=== PATIENT | female | born 1980 | race Caucasian/White ===

== ENCOUNTER 2021-03-19 11:03 | Outpatient (CLI) | payer OTHER, SELFPAY ==
--- NOTE | ~2021-03-19 | MMUS_ITS ---
EXAMINATION: MM diagnostic racquel BI w aniket, US breast BI limited HISTORY: Pain in the upper outer quadrant of the left breast TECHNIQUE: Craniocaudal, mediolateral, and mediolateral oblique 3-D tomosynthesis images of the breas ts were performed and synthetic 2-D images were generated. Spot compression views are also obtained. CAD analysis was submitted and interpreted. High resolution limited bilateral breast ultrasound was p erformed. COMPARISON: None, baseline BREAST PARENCHYMAL COMPOSITION: The breasts are heterogeneously dense, which may obscure small masses . FINDINGS: MAMMOGRAPHIC FINDINGS: Left breast: There is focal asymmetry in the upper outer quadrant of the left breast. No discrete mas s, architectural distortion, or calcification are identified. Right breast: There are oval, obscured, low-density masses in the posterior third of the lower breast 6:00 location location 10 cm from the nipple. ULTRASOUND: Left breast: There is heterogeneously dense tissue in the upper outer quadrant of the breast correspo nding to the area of palpable concern. There are multiple associated cysts in this region measuring u p to 2.2 cm. Right breast: There are two adjacent cysts at the 7:00 location 5 cm from the nipple measuring 10 mm and 5 mm. No suspicious cystic or solid mass is identified. IMPRESSION: 1. Probably benign focal asymmetry of the left breast corresponding to the area of pain without suspi cious mammographic or sonographic findings. Further evaluation at this time should be based on clinic al assessment. Continued follow-up physical examination is recommended. 2. Recommend 6 month follow-up left diagnostic mammogram and ultrasound. BI-RADS category 3, probably benign findings. Reviewed, dictated and finalized at location A. [employer] IMPRESSION: 1. Probably benign focal asymmetry of the left breast corresponding to the area of pain without suspicious mammographic or sonographic findings. Further evalu ation at this time should be based on clinical assessment. Continued follow-up physical examination is recommended. 2. Recommend 6 month follow-up left diagnostic mammogram and ultrasound. BI-RADS category 3, probably benign findings.
== END 2021-03-19 11:04 | disposition home or self-care (01) ==
LOC: ANHIMG 11:07
PROVIDERS: PCP Family Medicine Sports Medicine; Visit Provider Obstetrics & Gynecology
DX: R92.8 Other abnormal and inconclusive findings on diagnostic imaging of breast (principal)
CPT/HCPCS: 76642; 77062; 77066; G0279

== ENCOUNTER 2021-09-17 11:29 | Outpatient (CLI) | payer OTHER, SELFPAY ==
--- NOTE | ~2021-09-17 | MMUS_ITS ---
EXAMINATION: MM diagnostic racquel LT w aniket, US breast LT complete HISTORY: Six-month follow-up of probable benign focal asymmetry in upper outer quadrant TECHNIQUE: Additional 3-D tomosynthesis images of were performed and synthetic 2-D images were genera alan. CAD analysis was submitted and interpreted. High resolution breast ultrasound was performed. COMPARISON: 03/19/2021 bilateral diagnostic mammography and Limited bilateral breast ultrasound BREAST PARENCHYMAL COMPOSITION: The breasts are heterogeneously dense, which may obscure small masses . FINDINGS: MAMMOGRAPHIC FINDINGS: At least several approximately 7, 15 and 18 mm circumscribed opacities are noted in the posterior out er mid left breast, likely cysts. No suspicious mass or architectural distortion, malignant calcification, skin thickening or retractio n of the left breast is evident. ULTRASOUND: 1:00 5 cm from nipple: 1.3 x 1.0 x 1.4 cm simple cyst 2:00 6 cm from nipple: 1.6 x 1.1 x 1.4 cm simple cyst 3:00 3 cm from nipple: 1.7 x 6 0.7 x 1 cm simple cyst No suspicious mass or shadowing of the left breast is detected IMPRESSION: 1. Benign cysts; no mammographic evidence of malignancy 2. Routine mammographic screening is recommended BI-RADS Category 2: Benign finding(s). Reviewed, dictated and finalized at location A. IMPRESSION: 1. Benign cysts; no mammographic evidence of malignancy 2. Routine mammographic screening is recommended BI-RADS Category 2: Benign finding(s).
== END 2021-09-17 11:30 | disposition home or self-care (01) ==
LOC: ANHIMG 11:31
PROVIDERS: PCP Family Medicine Sports Medicine; Visit Provider Obstetrics & Gynecology
DX: R92.8 Other abnormal and inconclusive findings on diagnostic imaging of breast (principal)
CPT/HCPCS: 76641; 77061; 77065; G0279

== ENCOUNTER 2022-11-04 08:36 | Outpatient (CLI) | payer OTHER, SELFPAY ==
--- NOTE | ~2022-11-04 | MM_ITS ---
EXAMINATION: MM screening racquel BI w aniket HISTORY: Screening mammogram TECHNIQUE: Craniocaudal and mediolateral oblique 3-D tomosynthesis images were obtained and synthetic 2-D images were generated. Bilateral rotated lateral CC views. CAD analysis was submitted and interp reted. COMPARISON: 09/17/2021 diagnostic left mammogram and complete left breast ultrasound examination 03/19/2021 diagnostic bilateral mammogram and Limited bilateral breast ultrasound BREAST PARENCHYMAL COMPOSITION: The breasts are heterogeneously dense, which may obscure small masses . FINDINGS: There are bilateral breast masses, some circumscribed, low-density, some with halo sign, li uziel cysts. Bilateral diagnostic mammogram and bilateral breast ultrasound examination are recommende d. IMPRESSION: 1. Bilateral breast masses 2. Bilateral diagnostic mammogram and bilateral breast ultrasound examination are recommended BI-RADS Category 0: Incomplete: Needs additional imaging evaluation. Reviewed, dictated and finalized at location A. IMPRESSION: 1. Bilateral breast masses 2. Bilateral diagnostic mammogram and bilateral breast ultrasound examination a re recommended BI-RADS Category 0: Incomplete: Needs additional imaging evaluation.
== END 2022-11-04 08:37 | disposition home or self-care (01) ==
LOC: ANHIMG 08:40
PROVIDERS: PCP Family Medicine Sports Medicine; Visit Provider Obstetrics & Gynecology
DX: Z12.31 Encounter for screening mammogram for malignant neoplasm of breast (principal); R92.8 Other abnormal and inconclusive findings on diagnostic imaging of breast
CPT/HCPCS: 77063; 77067

== ENCOUNTER 2022-12-04 11:14 | Outpatient (CLI) | payer OTHER, SELFPAY ==
--- NOTE | ~2022-12-04 | MMUS_ITS ---
EXAMINATION: MM diagnostic racquel BI w aniket, US breast LT limited HISTORY: Bilateral breast masses on screening mammogram TECHNIQUE: Additional 3-D tomosynthesis images of the breasts were performed and synthetic 2-D images were generated. CAD analysis was submitted and interpreted. High resolution limited left breast ultr asound was performed. COMPARISON: 11/04/2022, 09/17/2021, 03/19/2021 FINDINGS: MAMMOGRAPHIC FINDINGS: Right breast: There are multiple obscured, equal density masses in the right breast which demonstrate a stable appearance when compared to prior mammograms with spot compression. Left breast: Multiple obscured masses are noted in the upper outer quadrant of the breast, some of wh ich demonstrate slight increase in size since the most recent comparison examination. No suspicious c alcification or architectural distortion are identified. ULTRASOUND: There are multiple simple cysts in the upper outer quadrant of the left breast, the largest of which measures up to 2 cm. No suspicious cystic or solid mass is identified. IMPRESSION: 1. No mammographic or sonographic evidence of malignancy. 2. Recommend routine screening mammography in one year. BI-RADS Category 2: Benign finding(s). Reviewed, dictated and finalized at location A. IMPRESSION: 1. No mammographic or sonographic evidence of malignancy. 2. Recommend routine screening mammography in one year. BI-RADS Category 2: Benign finding(s).
== END 2022-12-04 11:15 | disposition home or self-care (01) ==
LOC: ANHIMG 11:21
PROVIDERS: PCP Family Medicine Sports Medicine; Visit Provider Obstetrics & Gynecology
DX: R92.8 Other abnormal and inconclusive findings on diagnostic imaging of breast (principal)
CPT/HCPCS: 76642; 77062; 77066; G0279

== ENCOUNTER 2022-12-29 23:16 | Emergency (ER) | payer OTHER, SELFPAY ==
[2022-12-29 23:20] VITALS: BP 139/78; PULSE 75; RESP 15; TEMP 36; O2SAT 75
[2022-12-29 23:39] LABS: Basophils Absolute Auto 0.1 K/mm3 (0.0-0.1); Eosinophils Absolute Auto 0.2 K/mm3 (0-0.3); Eosinophils Percent Auto 2.4 % (0-4.4); Hematocrit 37.7 % (37.0-47.0); Hemoglobin 12.3 g/dL (12.0-15.0); Immature Granulocyte Absolute 0.01 K/mm3 (0.00-0.031); Immature Granulocyte Percent A 0.1 % (0-0.5); Lymphocytes Absolute Auto 3.05 K/mm3 (0.9-3.2); Lymphocytes Percent Auto 31.7 % (18.3-44.2); Mean Corpuscular HGB Conc 32.6 g/dl (32-36); Mean Corpuscular Hemoglobin 28.5 pg (26-34); Mean Corpuscular Volume 87.3 fl (80-100); Mean Platelet Volume 10.1 fl (7.4-10.4); Monocytes Absolute Auto 0.9 K/mm3 (0.1-0.6); Monocytes Percent Auto 9.8 % (2.6-8.5); Neutrophils Absolute Auto 5.3 K/mm3 (1.3-6.7); Platelet Count Result 374 k/mm3 (150-375); Red Blood Count 4.32 M/mm3 (4.2-5.4); Red Cell Distribution Width 12.6 % (11.5-14.5); White Blood Count 9.6 K/mm3 (4.5-10.0)
[2022-12-29 23:50] LABS: Alanine Aminotransferase 19 U/L (6-35); Albumin Level 4.4 g/dL (3.5-5.1); Alkaline Phosphatase 79 U/L (38-126); Anion Gap 7 mmol/L (8-16); Aspartate Amino Transferase 24 U/L (14-36); Bilirubin,Total 0.3 mg/dL (0.2-1.3); Blood Urea Nitrogen 14 mg/dL (7-17); Calcium 9.2 mg/dL (8.4-10.2); Carbon Dioxide 29 mmol/L (22-30); Chloride 102 mmol/L (98-107); Estimated CRCL calculation 79 ml/min; Estimated Glomerular Filt Rate > 60; Glucose 128 mg/dL (65-110); Lipase 99 U/L (23-300); Potassium 4.2 mmol/L (3.4-5.0); Sodium 138 mmol/L (137-145)
[2022-12-30 00:47] LABS: Appearance Urine Clear (Clear); Bilirubin Urine Negative (Negative); Blood Urine Negative (Negative); Color Urine Yellow (Yellow); Glucose Urine UA Negative (Negative); Ketones Urine Negative (Negative); Leukocyte Esterase Ur Negative LEU/UL (Negative); Nitrate Urine Negative (Negative); Protein Urine Negative (Negative); Specific Grav Ur 1.006 (1.001-1.035); Urobilinogen Urine 0.2 mg/dL (<2.0); pH Urine 6.5 (5.0-9.0)
[2022-12-30 00:48] LABS: Add Urine Microscopic? NO
[2022-12-30 01:15] LABS: Pregnancy On Board Control Positive; Urine Pregnancy Test Negative
== END 2022-12-30 01:20 | disposition left against medical advice (07) ==
LOC: ANHED 12-30 01:20
PROVIDERS: Emergency Provider Emergency Medicine; PCP Family Medicine Sports Medicine
DX: R10.9 Unspecified abdominal pain (principal)
CPT/HCPCS: 36415; 80053; 81003; 81025; 83690; 85025; 99199

== ENCOUNTER 2023-01-01 12:01 | Emergency (ER) | payer OTHER, SELFPAY ==
--- NOTE | ~2023-01-01 | US_ITS ---
US right upper quadrant DATE: 01/01/2023 16:48 INDICATION: Right upper quadrant abdominal pain TECHNIQUE: Real-time imaging of liver, pancreas, gallbladder COMPARISON: 01/01/2023 CT abdomen pelvis FINDINGS: No hepatic or pancreatic space-occupying mass lesion is detected. Normal hepatopedal portal venous flow direction. There is gallbladder wall thickening, measuring up to 3 have 4 mm thickness. There is a fixed filling defect of the gallbladder neck, measuring up to approximately 1.1 cm diameter, with posterior shadow ing. IMPRESSION: Acute cholecystitis with impacted stone at gallbladder neck, gallbladder wall thickening Reviewed, dictated and finalized at Location A. Reviewed, dictated and finalized at location A. IMPRESSION: Acute cholecystitis with impacted stone at gallbladder neck, gallbl adder wall thickening
--- NOTE | ~2023-01-01 | CT_ITS ---
EXAMINATION: CT abdomen pelvis w con DATE: 01/01/2023 16:46 INDICATION: Right upper quadrant abdominal pain TECHNIQUE: Computed tomography (CT) of the abdomen and pelvis was performed with 100 mL Omnipaque-350 intravenous contrast. Automated exposure control and iterative reconstruction technique were employe d. The dose-length product was 463.99 mGy-cm. COMPARISON: None FINDINGS: Mild linear discoid atelectasis in the left lower lobe. Heart size is normal. No pericardial or pleur al effusion. Small amount of pericholecystic fluid versus mild edematous wall thickening of the decom pressed gallbladder. Liver, spleen, pancreas and bilateral adrenal glands are normal. Numerous scatte red colonic diverticula without adjacent inflammatory change to suggest diverticulitis. Small bowel a nd appendix are normal. Bladder is normal. Heterogeneous enhancement of the anteverted uterus with so me architectural distortion of the endometrial complex most likely related to uterine fibroids. 1.7 c m likely corpus luteum cyst in the right ovary with peripheral enhancing rim with typical crenelated contour. Minimal likely physiologic free fluid in the cul-de-sac. No abscess or free intraperitoneal gas. No pathologically enlarged abdominal or pelvic lymphadenopathy. Mild to moderate lower lumbar pr edominant facet osteoarthritis. IMPRESSION: 1. Small amount of pericholecystic fluid versus edematous wall thickening of the largely decompressed gallbladder which argues against acute cholecystitis but which could be seen with either chronic cho lecystitis or acute cholecystitis with resultant obstruction. Could consider further evaluation with HIDA scan or right upper quadrant ultrasound as clinically indicated. 2. Mildly enlarged and heterogeneously enhancing uterus most likely related to uterine fibroids. If n ot previously worked up would consider further evaluation with ultrasound. 3. Extensive diverticulosis. Reviewed, dictated and finalized at location A. IMPRESSION: 1. Small amount of pericholecystic fluid versus edematous wall thickening of th e largely decompressed gallbladder which argues against acute cholecystitis but which could be seen with either chronic cholecystitis or acute cholecystitis w ith resultant obstruction. Could consider further evaluation with HIDA scan or right upper quadrant ultrasound as clinically indicated. 2. Mildly enlarged and heterogeneously enhancing uterus most likely related to uterine fibroids. If not previously worked up would consider further evaluation with ultrasound. 3. Extensive diverticulosis.
[2023-01-01 12:28] VITALS: BP 134/76; PULSE 72; RESP 16; TEMP 36.6; O2SAT 100
[2023-01-01 14:30] LABS: Appearance Urine Clear (Clear); Bilirubin Urine Negative (Negative); Blood Urine Negative (Negative); Color Urine Yellow (Yellow); Glucose Urine UA Negative (Negative); Ketones Urine Negative (Negative); Leukocyte Esterase Ur Negative LEU/UL (Negative); Nitrate Urine Negative (Negative); Protein Urine Negative (Negative); Specific Grav Ur 1.007 (1.001-1.035); Urobilinogen Urine 0.2 mg/dL (<2.0)
[2023-01-01 14:33] LABS: Add Urine Microscopic? NO
[2023-01-01 15:45] LABS: Basophils Absolute Auto 0.1 K/mm3 (0.0-0.1); Eosinophils Absolute Auto 0.2 K/mm3 (0-0.3); Eosinophils Percent Auto 1.9 % (0-4.4); Hematocrit 40.9 % (37.0-47.0); Hemoglobin 13.3 g/dL (12.0-15.0); Immature Granulocyte Absolute 0.01 K/mm3 (0.00-0.031); Immature Granulocyte Percent A 0.1 % (0-0.5); Lymphocytes Absolute Auto 2.36 K/mm3 (0.9-3.2); Lymphocytes Percent Auto 27.3 % (18.3-44.2); Mean Corpuscular HGB Conc 32.5 g/dl (32-36); Mean Corpuscular Hemoglobin 28.5 pg (26-34); Mean Corpuscular Volume 87.6 fl (80-100); Mean Platelet Volume 10.1 fl (7.4-10.4); Monocytes Absolute Auto 0.7 K/mm3 (0.1-0.6); Neutrophils Absolute Auto 5.3 K/mm3 (1.3-6.7); Neutrophils Percent Auto 61.7 % (45.5-73.1); Platelet Count Result 400 k/mm3 (150-375); Red Blood Count 4.67 M/mm3 (4.2-5.4); Red Cell Distribution Width 12.8 % (11.5-14.5); White Blood Count 8.6 K/mm3 (4.5-10.0)
[2023-01-01 16:11] LABS: Alanine Aminotransferase 21 U/L (6-35); Albumin Level 4.6 g/dL (3.5-5.1); Alkaline Phosphatase 73 U/L (38-126); Anion Gap 6 mmol/L (8-16); Aspartate Amino Transferase 25 U/L (14-36); Bilirubin,Total 0.4 mg/dL (0.2-1.3); Blood Urea Nitrogen 10 mg/dL (7-17); Carbon Dioxide 30 mmol/L (22-30); Chloride 103 mmol/L (98-107); Estimated CRCL calculation 89 ml/min; Estimated Glomerular Filt Rate > 60; Glucose 119 mg/dL (65-110); Lipase 54 U/L (23-300); Sodium 139 mmol/L (137-145)
[2023-01-01 17:32] LABS: Lactic Acid Reflex 1.2 mmol/L (0.7-2.0)
[2023-01-01] MEDS: metroNIDAZOLE 250 MG TABLET 500 MG PO (17:52)
[2023-01-01] MEDS: CIPROFLOXACIN 500 MG TAB PO (17:53)
--- NOTE | 2023-01-01 17:55 | ED.ABDPAIN ---
HPI - Abdominal Pain General Chief Complaint: Abdominal Pain Stated Complaint: gallbladder problems Time Seen by Provider: 01/01/23 14:44 History of Present Illness HPI narrative: This is a 42-year-old female, with no significant past medical history, presents to the emergency department complaining of intermittent right upper quadrant pain for the past week. The patient states her pain began 1 week ago, shortly after eating. It was rated 7/10, described as sharp without radiation. The pain resolved, but has reoccurred. Her last episode of pain was 2 days ago, she presented for evaluation but left prior to being seen. The patient discussed this with her primary care doctor, who recommended she be evaluated in the emergency department. She denies pain today. Related Data Allergies Allergy/AdvReac Type Severity Reaction Status Date / Time No Known Allergies Allergy Unknown Unverified 07/22/07 14:01 Review of Systems Review of Systems: CONSTITUTIONAL: Denies fever, chills, or sweats. CARDIOVASCULAR: Denies chest pain, palpitations, or edema. RESPIRATORY: Denies cough or dyspnea. GASTROINTESTINAL: Intermittent right upper quadrant abdominal pain denies nausea, vomiting, or diarrhea. GENITOURINARY: Denies dysuria or hematuria. SKIN: Denies rash or itching. MUSCULOSKELETAL: Denies back pain, joint pain, or myalgia. NEUROLOGIC: Denies headache, numbness, dizziness, or weakness. PSYCHIATRIC: Denies anxiety or depression. PMFSH Past Medical History Medical History (Updated 01/01/23 @ 20:29 by Kaiden Nunez MD) No significant past medical history Surgical History Surgical History (Updated 01/01/23 @ 20:29 by Kaiden Nunez MD) History of Social History Social History (Updated 01/01/23 @ 20:30 by Kaiden Nunez MD) Smoking status: Never smoker Alcohol intake: current Drinks per week: 1 Substance use: never Exam Narrative: GENERAL: Well-developed, well-nourished, and in no acute distress. HEAD: Normocephalic, atraumatic. EYES: PERRLA and EOMI. CHEST: Clear to auscultation. No respiratory distress. No wheezes rales or rhonchi HEART: Regular rate and rhythm. No murmur heard. Normal peripheral pulses. ABDOMEN: Soft, nontender, nondistended, normal active bowel sounds. No CVA tenderness to palpation. EXTREMITIES: Normal range of motion. No edema. SKIN: Warm, dry, no rash. NEURO: Alert and oriented x3. Moving all 4 limbs purposefully. PSYCH: Normal mood and affect. Course Course Emergency Course: 17:36 - White blood cell count within normal limits at 8.6. Mild thrombocytosis with platelet count of 400. CBC otherwise unremarkable. Chemistries unremarkable with a negative lactic acid of 1.2 and normal LFTs. UA not concerning for UTI. test was negative. Ultrasound and CT abdomen pelvis consistent with acute cholecystitis. Ultrasound shows an impacted stone at the gallbladder neck. The patient has not had any abdominal pain. I discussed the patient with general surgeon, Dr. Stewart, who recommends oral antibiotics, and close outpatient follow-up. I discussed these findings and recommendations with the patient and her spouse, both of whom voiced understanding and are comfortable with the plan. All questions answered to their satisfaction. Vital Signs Vital signs: Vital Signs Temperature 97.9 F 01/01/23 12:28 Pulse Rate 72 01/01/23 12:28 Respiratory Rate 16 01/01/23 12:28 Blood Pressure 134/76 01/01/23 12:28 Pulse Oximetry 100 01/01/23 12:28 Oxygen Delivery Room Air 01/01/23 12:28 Temperature 97.5 F L 01/01/23 18:12 Pulse Rate 64 01/01/23 18:12 Respiratory Rate 15 01/01/23 18:12 Blood Pressure 110/92 H 01/01/23 18:12 Pulse Oximetry 100 01/01/23 18:12 Oxygen Delivery Room Air 01/01/23 12:28 MDM - Abdominal Pain MDM Narrative Medical decision making narrative: Plan: Labs, imaging, pain control, test,
[2023-01-01 18:12] VITALS: BP 110/92; PULSE 64; RESP 15; TEMP 36.4; O2SAT 100
== END 2023-01-01 18:10 | disposition home or self-care (01) ==
PROVIDERS: Emergency Provider Preventive Medicine Aerospace Medicine; PCP Family Medicine Sports Medicine
DX: K80.00 Calculus of gallbladder with acute cholecystitis without obstruction (principal); K57.90 Diverticulosis of intestine, part unspecified, without perforation or abscess without bleeding
CPT/HCPCS: 36415; 74177; 76705; 80053; 81003; 81025; 83605; 83690; 85025; 99284; A9270; Q9967

== ENCOUNTER 2023-01-06 02:06 | Day surgery (SDC) | payer OTHER, SELFPAY ==
--- NOTE | 2023-01-03 15:25 | PC.NURSE ---
Report to the Outpatient Waiting Room, entrance under the green pavilion located off [facility], at time on date . Planned Procedure Time: . Time changes happen often and if your time is changed the preop area will call you the afternoon before. - You and your visitor will be asked to self-screen and do not enter if you have any COVID symptoms. - A mask is optional within the hospital at this time. Patients may have clear liquids (water, carbonated beverages, clear teas, apple juice) until 3 hours prior to surgery with a maximum of 20 ounces. - No food from midnight until time of surgery - Infants may have breast milk until 4 hours before surgery, infant formula 6 hours prior to surgery. - Children will be allowed to drink immediately following surgery. If applicable, please bring a bottle or sippy cup to assist with drinking. Juice, water, soda, and popsicles are readily available. For infants on formula, please bring formula the day of surgery. Pacifiers are allowed. Take the following medications with a SIP of water the morning of surgery: __ALPRAZOLAM, CIPRO, METRONIDAZOLE DO NOT STOP ANY OF YOUR OTHER PRESCRIPTION MEDICATIONS PRIOR TO SURGERY ?EXCEPT THE FOLLOWING Medications to discontinue per physician NONE Date to take last dose HIBICLENS SHOWER MORNING OF SURGERY Please no make-up, nail cuban, hairspray, perfume, deodorant, or body powder the day of surgery. No jewelry (including any body piercings) or valuables the day of surgery, leave them at home. Please take a shower or bath the night before, or the morning of, surgery with an antibacterial soap. Wear comfortable, loose fitting clothing. Children are encouraged to wear pajamas. - Jewelry must be removed prior to entering the operating room. Rings and piercings that are not removed may be cut off. - The hospital will not accept responsibility for valuables. - Please leave all valuables, including medications, at home the day of surgery. If you are going home after surgery, a licensed road oiling truck driver must drive you home. - NO public transportation without another adult if you receive anesthesia. - We recommend that an adult stay with you for 24 hours following discharge. - We also recommend that you do not drive, make important decision, drink alcoholic beverages, or take any drugs that were not prescribed by your health care provider for at least 24 hours after your discharge time. For Pediatric surgeries, we recommend two adults accompany the child home. Follow any additional instructions given to you from your surgeon. If you or anyone in your household have experienced Covid symptoms in the past week, please notify your surgeon or the nurse liaison at the phone number below for possible testing. Telephone instructions given to __PT and asked if any additional questions and then verbalized understanding. Patient advised to call surgeon office or pre surgery nurse liaison [phone] if any additional questions.
[2023-01-03 15:34] VITALS: BMI 27.3
[2023-01-06] VITALS (9 sets, daily range): BP systolic 102–128; BP diastolic 53–85; PULSE 67–86; RESP 14–18; TEMP 36.1–37; O2SAT 98–100
--- NOTE | 2023-01-06 13:09 | WPDHPUPDATE1 ---
History and Physical Update Update Date/Time: 01/06/23 13:09 History and Physical has been reviewed, including an updated exam of the patient. There are NO changes in the patient's condition. Risks, benefits, and alternatives have been discussed and questions answered. Patient agrees to proceed with procedure.
--- NOTE | 2023-01-06 13:27 | WPDANESEPP ---
Anes - Eval Pre Procedure Procedure: Operation Date: 01/06/23 16:00 Proposed Procedures p Laparoscopic Cholecystectomy - Gillian Fish MD Date/Time: 01/06/23 13:27 Pre Op Diagnosis: acute calculus cholecystitis Patient Data Age: 42 Gender: F Height: 1.63 m Weight: 72.15 kg Allergies Allergy/AdvReac Type Severity Reaction Status Date / Time No Known Allergies Allergy Unknown Verified 01/03/23 15:19 Home Medications Medication Instructions Recorded Confirmed Type ciprofloxacin HCl 500 mg tablet 500 mg PO Q12H #28 tabs 01/01/23 01/03/23 Rx metronidazole 500 mg tablet 500 mg PO Q8H 14 days #42 tabs 01/01/23 01/03/23 Rx oxycodone-acetaminophen 5 mg-325 1 tablet PO Q8H PRN pain, severe 01/01/23 01/03/23 Rx mg tablet (Endocet) #15 tabs prochlorperazine maleate 10 mg 10 mg PO Q8H PRN nausea and 01/01/23 01/03/23 Rx tablet vomiting #15 tabs alprazolam 0.25 mg tablet 0.25 mg PO PRN PRN Anxiety 01/03/23 01/03/23 History Patient hx anesthesia problems: post op nausea/vomiting Family hx anesthesia problems: none Results Review: All pre-operative results and documents have been reviewed as part of the pre-operative evaluation. [facility] Past Medical History Medical History Anxiety No significant past medical history Overweight (BMI 25.0-29.9) PONV (postoperative nausea and vomiting) Rosacea Surgical History Surgical History History of Family History Family History Other Cancer Cerebrovascular accident Diabetes mellitus Social History Social History Smoking status: Never smoker Alcohol intake: current Drinks per week: 1 Substance use: never Living arrangements: with family Spiritual care concerns: No Exam Day of Procedure 01/06/23 13:27 Patient weight: overweight Heart: regular rate and rhythm Lungs: clear to auscultation Airway: Mallampati scale class II Neurological: alert and oriented
[2023-01-06] MEDS: ACETAMINOPHEN 500 MG TABLET 1000 MG PO (13:40)
[2023-01-06] MEDS: LACTATED RINGERS 1,000 ML 30 ML IV CONT ×2 (13:40→14:47)
[2023-01-06] MEDS: KETOROLAC 15 MG/ML VIAL (*BKC) IV PUSH (13:40)
[2023-01-06] MEDS: SCOPOLAMINE 1.5 MG PATCH TRANSDERM (13:45)
[2023-01-06] MEDS: ceFAZolin 2 GM/D5W 50 ML 2 GM/50 ML BAG IVPB (14:00)
[2023-01-06] MEDS: BUPIVACAINE/EPINEPHRINE 0.5% 50 ML VIAL INFILTRATE (14:22)
--- NOTE | 2023-01-06 14:48 | W.PM.PROC2 ---
Procedure Note - Detailed Date of Procedure 01/06/23 Pre-op Diagnosis acute calculus cholecystitis Post-op Diagnosis Same Procedure Performed Laparoscopic cholecystectomy Surgeon Gillian Fish MD Anesthesia General Indications 42-year-old female presented to the office complaining of severe right upper quadrant abdominal pain associated with nausea and vomiting. Workup including imaging significant for acute cholecystitis, cholelithiasis. Findings acute cholecystitis with cholelithiasis Description of Procedure The patient was taken to the operating room placed in the supine position. After adequate induction of general anesthesia, the patient was prepped and draped in normal sterile fashion. A time-out was then performed to verify the patient's identity as well as the procedure being performed. I then made a 5 mm incision in the infraumbilical region. Through this, a Veress needle was placed into the peritoneal cavity and CO2 gas was then insufflated. After adequate pneumoperitoneum was achieved, the Veress needle was removed and a 5 mm optiview trocar was placed through this incision under direct visualization. I then placed the laparoscope through this trocar site and under direct visualization placed a further 12 mm subxiphoid port as well as 2 additional 5 mm ports in the right upper abdomen. The gallbladder was then identified and was noted to be inflamed, distended, and a impacted gallstone was noted at the neck. I was able to place a grasper at the dome of the gallbladder and this was retracted anterior and cephalad up over the liver. A 2nd retractor was then placed at the infundibulum and retracted laterally, this allowed visualization of the triangle of Calot. I then was able to visualize the cystic duct in its entirety from its proximal insertion into the gallbladder, to its distal junction with the common hepatic/common bile duct junction. At this point, I carefully skeletonized the proximal cystic duct with the [place] dissector. I then clipped and transected the proximal cystic duct. Next I visualized the cystic artery. Again the artery was skeletonized, clipped, and transected. I then used the Bovie cautery to take down the peritoneal attachments of the gallbladder off the liver bed. This was somewhat difficult given the amount of inflammation in the posterior space. Once the gallbladder specimen was completely detached, an endo-pouch was placed through the 12 mm port site. I then placed the gallbladder specimen into the Endo pouch and removed the endo-pouch from the 12 mm port site. The specimen will now be sent to pathology for further review. I then copiously irrigated the right upper quadrant. Hemostasis was noted in the liver bed, the clips were noted to be in good position on both the cystic duct stump and the cystic artery stump. No other pathology was noted in the right upper quadrant. I then moved the laparoscope to the subxiphoid port. No iatrogenic injury or other pathology was noted in the lower abdomen. I then closed the 12 mm trocar site under direct visualization using the Acosta cone and 0 Vicryl suture. At this point, the abdomen was desufflated and all ports removed. All port sites were then closed with 4.O Monocryl subcuticular sutures. Dermabond was placed on each incision. The patient tolerated the procedure well, was extubated in the operating room postoperative and will be transferred to the recovery room in stable condition Estimated Blood Loss 5 Drains No Packing No Pathology Yes Complications No immediate complications Condition Stable Disposition PACU [facility] Billing Surgery - Charge Forward: Surgery Billing
[2023-01-06] MEDS: fentaNYL CITRATE INJ (*CRX) 100 MCG/2 ML VIAL 25 MCG IV PUSH ×4 (15:27→16:24)
[2023-01-06] MEDS: ONDANSETRON INJ 4 MG/2 ML VIAL IV PUSH (16:19)
[2023-01-06] MEDS: diphenhydrAMINE HCl INJ 50 MG/ML VIAL 25 MG IV PUSH (16:30)
== END 2023-01-06 17:25 | disposition home or self-care (01) ==
PROVIDERS: PCP Family Medicine Sports Medicine; Visit Provider Surgery
PROC: 0FT44ZZ Resection of Gallbladder, Percutaneous Endoscopic Approach (ICD-10-PCS; CPT 47562; principal; 2023-01-06 16:00)
DX: K80.10 Calculus of gallbladder with chronic cholecystitis without obstruction (principal); F41.9 Anxiety disorder, unspecified
CPT/HCPCS: 47562; 88304; A9270; J0690; J1100; J1200; J1885; J2250; J2405; J2704; J3010; J7030; J7120

== ENCOUNTER 2023-08-13 00:13 | Day surgery (SDC) | payer OTHER, SELFPAY ==
[2023-08-01 14:38] VITALS: BMI 28.3
--- NOTE | 2023-08-01 14:41 | PC.NURSE ---
Report to the Outpatient Waiting Room, entrance under the green pavilion located off [facility], at time 1000 on date 08/13/23. Planned Procedure Time: 1200. Time changes happen often and if your time is changed the preop area will call you the afternoon before. - You and your visitor will be asked to self-screen and do not enter if you have any COVID symptoms. - A mask is optional within the hospital at this time. Patients may have clear liquids (water, carbonated beverages, clear teas, apple juice) until 3 hours prior to surgery with a maximum of 20 ounces. - No food from midnight until time of surgery Take the following medications with a SIP of water the morning of surgery: ALPRAZOLAM IF NEEDED DO NOT STOP ANY OF YOUR OTHER PRESCRIPTION MEDICATIONS PRIOR TO SURGERY ?EXCEPT THE FOLLOWING Medications to discontinue per physician: N/A Date to take last dose: N/A Please no make-up, nail sami, hairspray, perfume, deodorant, or body powder the day of surgery. No jewelry (including any body piercings) or valuables the day of surgery, leave them at home. Please take a shower or bath the night before, or the morning of, surgery with an antibacterial soap. Wear comfortable, loose fitting clothing. - Jewelry must be removed prior to entering the operating room. Rings and piercings that are not removed may be cut off. - The hospital will not accept responsibility for valuables. - Please leave all valuables, including medications, at home the day of surgery. If you are going home after surgery, a licensed patrol driver must drive you home. - NO public transportation without another adult if you receive anesthesia. - We recommend that an adult stay with you for 24 hours following discharge. - We also recommend that you do not drive, make important decision, drink alcoholic beverages, or take any drugs that were not prescribed by your health care provider for at least 24 hours after your discharge time. Follow any additional instructions given to you from your surgeon. If you or anyone in your household have experienced Covid symptoms in the past week, please notify your surgeon or the nurse liaison at the phone number below for possible testing. Telephone instructions given to DEVANTE MENDIOLA and asked if any additional questions and then verbalized understanding. Patient advised to call surgeon office or pre surgery nurse liaison [phone] if any additional questions.
[2023-08-13 10:11] VITALS: BP 115/66; PULSE 71; RESP 16; TEMP 36.7; O2SAT 100
--- NOTE | 2023-08-13 10:11 | P.PNAN_ITS ---
Anes - Initial Pre Proc Eval Procedure: Operation Date: 08/13/23 12:00 Proposed Procedures p Hysteroscopy Dilation and Curettage with Sharita Endometrial Ablation - Sánchez Brenner MD Date/Time: 08/13/23 10:11 Surgeon: Sánchez Brenner MD Pre Op Diagnosis: irregular excessive bleeding Patient Data Age: 43 Gender: F Height: 1.63 m Weight: 74.85 kg Allergies Allergy/AdvReac Type Severity Reaction Status Date / Time No Known Allergies Allergy Unknown Verified 08/13/23 10:13 Home Medications Medication Instructions Recorded Confirmed Type alprazolam 0.25 mg tablet 0.25 mg PO PRN PRN Anxiety 01/03/23 08/13/23 History Patient hx anesthesia problems: post op nausea/vomiting (After lap laz recently, no issues w GI anesthetic previously. ) Family hx anesthesia problems: none Results Review: All pre-operative results and documents have been reviewed as part of the pre- operative evaluation. [facility] Past Medical History Medical History Anxiety No significant past medical history Overweight (BMI 25.0-29.9) PONV (postoperative nausea and vomiting) Rosacea Surgical History Surgical History Hx laparoscopic cholecystectomy Laparoscopic cholecystectomy 01/06/[address] Fish. Family History Family History Other Cancer Cerebrovascular accident Diabetes mellitus Social History Social History Smoking status: Never smoker Alcohol intake: current Drinks per week: 1 Alcohol use details: VERY RARE Substance use: never Substance use type: does not use Living arrangements: with family Gender identity (if verbalized by the patient): Female Sexual Orientation (if Verbalized by the Patient): Straight or Heterosexual Spiritual care concerns: No Anes - Eval Final PreProcedure Day of Procedure 08/13/23 10:11 Patient weight: normal Heart: regular rate and rhythm Lungs: clear to auscultation Airway: Mallampati scale Neurological: alert and oriented Last oral intake: >/= 8 hours ASA classification: II Emergent: no Anesthetic plan: proceed Anesthesia type and monitoring: general GIVS and standard monitoring Results Review: All pre-operative results and documents have been reviewed as part of the pre-operative evaluation. Informed Consent: The patient's anesthetic plan and its attendant risks and benefits were discussed with the patient/family/POA. Questions were solicited and answers provided to the satisfaction of the patient/family/POA.
[2023-08-13] MEDS: ACETAMINOPHEN 500 MG TABLET 1000 MG PO (10:20)
[2023-08-13] MEDS: LACTATED RINGERS 1,000 ML 30 ML IV CONT (10:25)
--- NOTE | 2023-08-13 11:31 | PM.IMHP ---
H&P: HPI History of Present Illness Date/Time: 08/13/23 11:31 Chief Complaint: Heavy periods. Narrative: 43 y/o whose has had a vasectomy. She has heavy menses. She is interested in surgical management. Review of Systems Review of Systems: All systems reviewed & are unremarkable except as noted in HPI and below PMFSH Past Medical History Medical History Anxiety No significant past medical history Overweight (BMI 25.0-29.9) PONV (postoperative nausea and vomiting) Rosacea Surgical History Surgical History Hx laparoscopic cholecystectomy Laparoscopic cholecystectomy 01/06/[address] Fish. Family History Family History Other Cancer Cerebrovascular accident Diabetes mellitus Social History Social History Smoking status: Never smoker Alcohol intake: current Drinks per week: 1 Alcohol use details: VERY RARE Substance use: never Substance use type: does not use Living arrangements: with family Gender identity (if verbalized by the patient): Female Sexual Orientation (if Verbalized by the Patient): Straight or Heterosexual Spiritual care concerns: No Meds Home Medications and Allergies Home Medications Medication Instructions Recorded Confirmed Type alprazolam 0.25 mg tablet 0.25 mg PO PRN PRN Anxiety 01/03/23 08/13/23 History Allergies Allergy/AdvReac Type Severity Reaction Status Date / Time No Known Allergies Allergy Unknown Verified 08/13/23 10:13 Vital Signs Vital Signs - 24 hr 08/13/23 10:11 Temperature 36.7 C Pulse Rate 71 Respiratory Rate 16 Blood Pressure 115/66 Pulse Oximetry 100 Oxygen Delivery Room Air Exam Const: Orientation/consciousness: patient oriented x3 Other: Well-developed, well-nourished female in no acute distress. Neck: Thyroid: thyroid normal Lymphatic: no lymphadenopathy noted (in neck, axilla or inguinal nodes) Resp: Effort & Inspection: normal respiratory effort Auscultation: clear to auscultation bilaterally Cardio: Rate: regular rate Rhythm: regular rhythm Heart sounds: S1 normal heart sound present and S2 normal heart sound present GI: Other: ABD: Soft, nontender, nondistended. No guarding or rebound tenderness. No hepatosplenomegaly. : General: Yes no CVA tenderness Other: External genitalia: normal female hair distribution, without lesion. Urethral meatus: no lesion, non prolapsed. Bladder: no mass, nontender Vagina: well-estrogenized, without lesion or discharge. No cystocele or rectocele. Cervix: no lesion or discharge. Uterus: small, anteverted, freely mobile, nontender Adnexa: no mass or tenderness. Anus/perineum: no lesions, nontender Back/Spine/Pelvis: Back: no CVA tenderness Skin: General skin exam: normal color and no rashes or lesions noted Neuro: General: patient oriented x3 Extrem: Other: Extremities: nontender with no edema Psych: Mental Status: mental status grossly normal Affect: normal affect Assessment and Plan Assessment and plan (1) Menorrhagia: Code(s): N92.0 - Excessive and frequent menstruation with regular cycle Status: Acute Assessment and Plan: A: Menorrhagia P: We have reviewed medical as well as surgical management options. She prefers the latter. I have offered her a hysteroscopy, dilation and sharp curettage, and endometrial ablation. She understands risks of surgery to include risks of anesthesia, risks of pain, infection, bleeding, blood products, thromboembolic phenomena and damage to adjacent structures such as bowel, bladder, ureters, blood vessels and nerves. She understands all these risks and elects to proceed with surgery.
--- NOTE | 2023-08-13 11:33 | WPDHPUPDATE1 ---
History and Physical Update Update Date/Time: 08/13/23 11:33 History and Physical has been reviewed, including an updated exam of the patient. There are NO changes in the patient's condition. Risks, benefits, and alternatives have been discussed and questions answered. Patient agrees to proceed with procedure.
[2023-08-13] MEDS: LIDOCAINE HCL 1% LOCAL INJ 20 ML VIAL 10 ML INFILTRATE (11:58)
--- NOTE | 2023-08-13 12:13 | W.PM.PROC2 ---
Procedure Note - Detailed Date of Procedure 08/13/23 Pre-op Diagnosis Menorrhagia Post-op Diagnosis Same Procedure Performed Hysteroscopy Dilation and sharp curettage Endometrial ablation Surgeon Sánchez Brenner MD Anesthesia MAC and Local (1% lidocaine) Findings Normal-appearing endometrial cavity. Both tubal ostia seen. The uterus sounded to a depth of 10.5 cm, with a cervical length of 3 cm, giving a subtracted uterine cavity length of 7.5 cm. Description of Procedure The patient was taken to the operating room where she was prepared and draped in the usual sterile fashion in the dorsal lithotomy position. The bladder was drained with a red rubber catheter. A sterile speculum was placed into the vagina. The anterior lip of the cervix was grasped with single-tooth tenaculum. Ten mL of 1% lidocaine was administered in a paracervical block. The cervix was then gently dilated using Hegar dilators until an 8 mm dilator could be passed. Hysteroscopy was performed using sterile saline as a distention medium. Findings are as noted above. Sharp curettage was then performed, and endometrial curettings were collected on a Telfa pad and passed off to be sent to pathology. Finally, the the Sharita device was advanced and endometrial ablation commenced without difficulty. The device was withdrawn and a second look was taken using the hysteroscope. Excellent coverage of the endometrial cavity was noted. The tenaculum was removed. Hemostasis was excellent. Sponge, lap, needle and instrument counts were correct. The patient was awakened and taken to the recovery room in stable condition. I was present and scrubbed through the entire procedure. Implants None Estimated Blood Loss 5 Drains No Packing No Pathology Yes (Endometrial curettings) Complications None Condition Stable Disposition PACU
[2023-08-13 12:15] VITALS: BP 102/68; PULSE 62; RESP 12; O2SAT 100
[2023-08-13 12:45] VITALS: BP 110/60; PULSE 62; RESP 20
[2023-08-13] MEDS: oxyCODONE HCL (*CRX) 5 MG TAB IR PO (12:56)
[2023-08-13 13:10] VITALS: BP 108/70; PULSE 62; RESP 20
== END 2023-08-13 13:20 | disposition home or self-care (01) ==
PROVIDERS: PCP Family Medicine Sports Medicine; Visit Provider Obstetrics & Gynecology
PROC: 0U5B8ZZ Destruction of Endometrium, Via Natural or Artificial Opening Endoscopic (ICD-10-PCS; CPT 58563; principal; 2023-08-13 12:00)
DX: N92.0 Excessive and frequent menstruation with regular cycle (principal); F41.9 Anxiety disorder, unspecified
CPT/HCPCS: 58563; 88305; A9270; J1100; J2250; J2405; J2704; J3010; J7120

== ENCOUNTER 2024-01-22 15:15 | Outpatient (CLI) | payer OTHER, SELFPAY ==
--- NOTE | ~2024-01-22 | MM_ITS ---
EXAMINATION: MM screening [facility] BI w aniket HISTORY: Screening TECHNIQUE: Craniocaudal and mediolateral oblique 3-D tomosynthesis images were obtained and synthetic 2-D images were generated. CAD analysis was submitted and interpreted. COMPARISON: Comparison to multiple prior studies sequentially, with oldest reviewed study dated 02/27. BREAST PARENCHYMAL COMPOSITION: Dense: The breasts are heterogeneously dense, which may obscure small masses FINDINGS: There are no suspicious masses, calcifications or architectural distortion in the right elise ast to suggest malignancy. There is a mass in the upper outer quadrant of the left breast, previously characterized as a cyst. No evidence for malignancy. IMPRESSION: 1. No mammographic evidence of malignancy. 2. Recommend routine screening mammography in one year. BI-RADS Category 2: Benign finding(s). Reviewed, dictated and finalized at location B.
== END 2024-01-22 15:16 | disposition home or self-care (01) ==
LOC: ANHIMG 15:15
PROVIDERS: PCP Family Medicine Sports Medicine; Visit Provider Obstetrics & Gynecology
DX: Z12.31 Encounter for screening mammogram for malignant neoplasm of breast (principal)
CPT/HCPCS: 77063; 77067

== ENCOUNTER 2025-03-14 13:41 | Outpatient (CLI) | payer OTHER, SELFPAY ==
--- NOTE | ~2025-03-14 | MM_ITS ---
EXAMINATION: screening [facility] BI w aniket INDICATION: Asymptomatic, referred for screening mammogram COMPARISON: 12/04/2022 through 03/19/2021 TECHNIQUE: Digital Breast Tomosynthesis CC, MLO views of Both breasts were obtained with computer-aided detection to assist in interpretation of the study. FINDINGS: The breasts are heterogeneously dense, which may obscure small masses. There is an asymmetry seen on the MLO view in the retroareolar right breast at posterior third. Elsewhere, there are no mammographic features of malignancy. IMPRESSION: 1. Right breast Asymmetry. 2. No evidence of malignancy in the Left breast. RECOMMENDATION: Right breast Diagnostic mammogram with true lateral, appropriate spot compression views and an ultrasound if needed. BI-RADS Category 0: Incomplete: Needs additional imaging evaluation. Reviewed, dictated and finalized at location B. [employer]ET SUPERVISOR IMPRESSION: 1. Right breast Asymmetry. 2. No evidence of malignancy in the Left breast. RECOMMENDATION: Right breast Diagnostic mammogram with true lateral, appropriate spot compressi on views and an ultrasound if needed. BI-RADS Category 0: Incomplete: Needs additional imaging evaluation.
== END 2025-03-14 13:42 | disposition home or self-care (01) ==
LOC: ANHFOHIMG 13:42
PROVIDERS: PCP Family Medicine Sports Medicine; Visit Provider Obstetrics & Gynecology
DX: Z12.31 Encounter for screening mammogram for malignant neoplasm of breast (principal); R92.8 Other abnormal and inconclusive findings on diagnostic imaging of breast
CPT/HCPCS: 77063; 77067